=== PATIENT | female | born 1980 | race Caucasian/White ===

== ENCOUNTER 2016-08-20 07:26 | Inpatient (IN) | payer BC ==
[2016-08-20] MEDS ORDERED: Dinoprostone* 10 MG VAG.SUPP VAGINAL ONE (09:27)
[2016-08-20] MEDS ORDERED: Acetaminophen TAB* 325 MG PO PRN (14:56)
[2016-08-20] MEDS ORDERED: Nalbuphine* 20 MG/ML 1 ML VIAL IV PRN (22:52)
[2016-08-20] MEDS ORDERED: Promethazine INJ(RESTRICTED)* 25 MG/ML 1 ML VIAL IV PRN (22:53)
[2016-08-21 00:38] LABS: Hematocrit 35 % (35-47); Hemoglobin 11.5 g/dl (12.0-16.0); Mean Corpuscular HGB Conc 33 g/dl (31-36); Mean Corpuscular Hemoglobin 27 pg (27-31); Mean Corpuscular Volume 83 fL (80-97); Mean Platelet Volume 8 um3 (7.4-10.4); Red Blood Count 4.18 10^6/ul (4.0-5.4); Red Cell Distribution Width 13 % (10.5-15); White Blood Count 18.1 10^3/ul (3.5-10.8)
[2016-08-21] MEDS ORDERED: Oxytocin in LR* 20 UNITS/1,000 ML BAG IVPB ONE (03:59)
[2016-08-21] MEDS ORDERED: Oxytocin in LR* 20 UNITS/1,000 ML BAG IVPB SCH (05:00)
[2016-08-21] MEDS ORDERED: OBEPIDURAL* 250 ML ONE (08:30)
[2016-08-21] MEDS ORDERED: Phenylephrine IV* 40 MCG/ML 10 ML SYRINGE IV PUSH PRN (11:09)
[2016-08-21] MEDS ORDERED: Sodium Citrate/Citric Acid* 15 ML UDC PO PRN (11:09)
[2016-08-21] MEDS ORDERED: EPHEDrine (Pressors)* 50 MG/ML VIAL IV PUSH PRN (11:09)
[2016-08-21] MEDS ORDERED: Famotidine TAB* 20 MG PO PRN (11:09)
[2016-08-21] MEDS ORDERED: Ondansetron INJ* 2 MG/ML VIAL IV PRN (20:09)
[2016-08-21] MEDS ORDERED: Ondansetron INJ* 2 MG/ML VIAL ONE (20:13)
[2016-08-21] MEDS ORDERED: fentaNYL* 50 MCG/ML 2 ML VIAL (100 MCG VIAL) ONE (20:29)
[2016-08-22 00:53] LABS: Hematocrit 32 % (35-47); Hemoglobin 10.5 g/dl (12.0-16.0); Mean Corpuscular HGB Conc 33 g/dl (31-36); Mean Corpuscular Hemoglobin 27 pg (27-31); Mean Corpuscular Volume 82 fL (80-97); Mean Platelet Volume 8 um3 (7.4-10.4); Red Blood Count 3.89 10^6/ul (4.0-5.4); Red Cell Distribution Width 13 % (10.5-15); White Blood Count 22.2 10^3/ul (3.5-10.8)
[2016-08-22 01:48] LABS: Albumin 2.9 g/dL (3.2-5.2); BUN/Creatinine Ratio 9.5 (8-20); Calcium 8.1 mg/dL (8.6-10.3); EGFR African American 76.3 (>60); EGFR Non-African American 59.3 (>60); Globulin 2.1 g/dL (2-4); Potassium 3.9 mmol/L (3.5-5.0); Total Bilirubin 0.6 mg/dL (0.2-1.0)
[2016-08-22] MEDS ORDERED: Furosemide IV* 10 MG/ML 2 ML VIAL (20 MG) IV ONE (02:11)
[2016-08-22] MEDS ORDERED: Furosemide IV* 10 MG/ML VIAL (40 MG) IV ONE (03:00)
[2016-08-22] MEDS ORDERED: Furosemide IV* 10 MG/ML VIAL (40 MG) ONE ×2 (03:22→05:51)
[2016-08-22] MEDS ORDERED: Furosemide IV* 10 MG/ML 10 ML VIAL (100 MG) IV ONE (05:52)
[2016-08-22 08:48] LABS: Hematocrit 35 % (35-47); Hemoglobin 11.4 g/dl (12.0-16.0); Mean Corpuscular HGB Conc 33 g/dl (31-36); Mean Corpuscular Hemoglobin 27 pg (27-31); Mean Corpuscular Volume 83 fL (80-97); Mean Platelet Volume 8 um3 (7.4-10.4); Red Cell Distribution Width 13 % (10.5-15); White Blood Count 21.2 10^3/ul (3.5-10.8)
[2016-08-22 08:54] LABS: Urine Bilirubin Negative (Negative); Urine Glucose 1+(50 mg/dL) (Negative); Urine Nitrite Negative (Negative)
[2016-08-22 08:58] LABS: BUN/Creatinine Ratio 6.3 (8-20); Calcium 8.1 mg/dL (8.6-10.3); EGFR African American 38.2 (>60); EGFR Non-African American 29.7 (>60); Globulin 2.6 g/dL (2-4); Potassium 3.7 mmol/L (3.5-5.0); Total Bilirubin 0.8 mg/dL (0.2-1.0); Total Protein 5.6 g/dL (6.4-8.9); Uric Acid 5.2 mg/dL (2.3-6.6)
[2016-08-22 09:08] LABS: Urine Bacteria Absent (Absent)
[2016-08-22] MEDS ORDERED: ceFOXitin 2 GM IVPREMIX* 2 GM/50 ML BAG ONE (09:17)
[2016-08-22] MEDS ORDERED: ceFOXitin 2 GM IVPREMIX* 2 GM/50 ML BAG IVPB ONE (09:21)
[2016-08-22] MEDS ORDERED: Morphine PF AMP (0.5MG/ML)* 5 MG/10 ML AMP ONE (09:30)
[2016-08-22] MEDS ORDERED: OXYTOCIN* 10 UNITS/ML 1 ML VIAL ONE (10:04)
[2016-08-22] MEDS ORDERED: Ondansetron INJ* 2 MG/ML VIAL ONE (10:04)
[2016-08-22] MEDS ORDERED: Misoprostol TAB* 200 MCG ONE (11:08)
[2016-08-22] MEDS ORDERED: Dibucaine 1% 28.35 GM TUBE PR PRN (11:14)
[2016-08-22] MEDS ORDERED: Acetaminophen TAB* 325 MG PO PRN (11:14)
[2016-08-22] MEDS ORDERED: Glycerin ADULT SUPP PR PRN (11:14)
[2016-08-22] MEDS ORDERED: Naloxone* 0.4 MG/ML 1 ML VIAL IV PRN (11:23)
[2016-08-22] MEDS ORDERED: Nalbuphine* 20 MG/ML 1 ML VIAL IV PRN ×2 (11:23)
[2016-08-22] MEDS ORDERED: HYDROmorphone* 1 MG/ML 1 ML SYR IV PRN (11:23)
[2016-08-22] MEDS ORDERED: diPHENhydraMINE IV* 50 MG/ML 1 ml VIAL (BENADRYL) IV PRN (11:23)
[2016-08-22] MEDS ORDERED: Ibuprofen TAB* 600 MG PO PRN (11:23)
[2016-08-22] MEDS ORDERED: fentaNYL* 50 MCG/ML 2 ML VIAL (100 MCG VIAL) ONE (11:45)
[2016-08-22] MEDS: fentaNYL* 50 MCG/ML 2 ML VIAL (100 MCG VIAL) IV PRN ×4 (11:54→12:22)
[2016-08-22] MEDS ORDERED: Oxytocin in LR* 20 UNITS/1,000 ML BAG IVPB SCH (12:00)
[2016-08-22] MEDS ORDERED: Ketorolac INJ* 30 MG/ML 1 ML VIAL IV PRN (12:04)
[2016-08-22] MEDS: Witch Hazel PAD* JAR TOPICAL PRN (13:11)
[2016-08-22] MEDS: Simethicone CHEW TAB* 80 MG PO SCH ×3 (13:11→19:54)
[2016-08-22] MEDS ORDERED: Ketorolac INJ* 30 MG/ML 1 ML VIAL ONE (13:20)
[2016-08-22 15:09] LABS: Urine Bacteria Absent (Absent); Urine Bilirubin Negative (Negative); Urine Glucose Negative (Negative); Urine Nitrite Negative (Negative)
[2016-08-22] MEDS: OBEPIDURAL* 250 ML EPIDURAL SCH (15:43)
[2016-08-22] MEDS: Docusate CAP* 100 MG PO SCH ×2 (15:44→19:55)
--- NOTE | 2016-08-22 16:10 | CONS ---
CC: Dr. Amezquita * CONSULTATION REPORT: DATE OF CONSULT: 08/22/16 - ROOM #118 PRIMARY CARE PROVIDER: None. REQUESTING PHYSICIAN FOR CONSULT: Dr. Amezquita. REASON FOR MEDICAL CONSULTATION: Evaluation of elevated creatinine and low urine output. HISTORY OF PRESENTING ILLNESS: I refer you to Dr. Amezquita's H and P for further details. In short, Ms. Capone is a 36-year-old female patient that presented on the of this month for induction. She was noted last night to have low urine output and a climbing creatinine this morning. She underwent C- section today, but because of the elevated creatinine and low urine output, we were asked to evaluate in consult. The patient was evaluated post . She has actually had about 1200 mL of urine output after delivering the baby. She denied having any chest pain currently. No shortness of breath. She does admit to having some abdominal discomfort at the incision. She denies having any lightheadedness or feeling dizzy. She says that to her knowledge, her blood pressures have remained normotensive throughout the . She did notice that her lower extremities were edematous, but because of the acute renal failure, her creatinine jumping from 1 to 1.9 in a day, in addition to this the patient having no urine output, we are asked to evaluate in consult. She denies having any flank pain or back pain. REVIEW OF SYSTEMS: There is no documented fever. She denied having any significant weight change. There was no double vision. She denies having any ear discharge. There was no rhinorrhea. No sore throat. No thyroid enlargement. She denied having any chest pain. There was no orthopnea, no nocturnal dyspnea. There is abdominal pain from HPI. There is no nausea, no vomiting, no dysuria, no frequency, no loss of consciousness, no pruritus and no skin ulcerations. Review of 14 systems completed, all others negative. PAST MEDICAL HISTORY: Significant for, 1. She has had a PE after having lower extremity surgery. 2. Anxiety. 3. Depression. 4. She is para 1, 1. PAST SURGICAL HISTORY: 1. She has had a left tib-fib ORIF. 2. done today. 3. Tonsillectomy. FAMILY HISTORY: Reviewed and noncontributory. SOCIAL HISTORY: She does not smoke. She does not drink. Surrogate decision maker is her Chava. ALLERGIES TO MEDICATIONS: Include HYDROCODONE and TRAMADOL. HOME MEDICATIONS: Include multivitamin 1 tablet daily. PHYSICAL EXAM: Vital Signs: Blood pressure 110/54, pulse 68, respirations 18, temperature 97.3. General: At this time, Ms. Capone is a 36-year-old female patient. She appears to be well-developed, well-nourished. She does not appear to be in any acute distress. HEENT: Head: Atraumatic. Eyes: Sclerae is anicteric, not pale. Neck: Supple. Throat: Oral mucosa appears to be moist. No oropharyngeal erythema. Heart: Sounds S1, S2. Regular rate and rhythm. No murmurs, rubs, or gallops. Lungs: Clear to auscultation. No wheezes, rales, or rhonchi. Abdomen was tender particularly at the incision site. Bowel sounds are hypoactive. Extremities: Pulses 2+ throughout. She did have +2 pedal edema. Neurologically, she is awake, alert and oriented x3. Her tongue is midline. Gore Cutter were equal. No gross focal deficits. Her skin is intact. DIAGNOSTIC STUDIES/LAB DATA: Labs today revealed WBC 21.2, RBC of 4.20, hemoglobin 11.5, hematocrit 35, and platelet count of 263. The INR was 0.86. The PTT was 27. Sodium was 124, potassium 3.7, chloride 104, bicarb 21, BUN 12, creatinine 1.91, glucose 91. LFTs were normal with AST 21, ALT 10, alk phos 135. Urine showed 2+ protein, 2+ blood. She had a urine random creatinine 143 , protein of 463. She had 2+ rbc's in her urine as well and 1+ glucose. Old medical records were reviewed. ASSESSMENT AND PLAN: Mrs. Capone is a 36-year-old female patient coming into the OB for induction on the of this month. Last night, it was noted that she was having decreased urine output. In addition to this, she was noted to be going into acute renal failure. She is status post . We are asked to evaluate in consult. Recommendations at this point are: 1. Status post section. I will defer the management of this to Dr. Amezquita's team. 2. Acute renal failure. At this point, I question if she did have some preeclampsia, although her blood pressures were not consistent with this; however, it seems that after delivering the baby, she is diuresing well. She is put out 1200 mL. My plan at this point is to repeat a BMP in the morning, follow her urine output, hydrate her which has been ordered by Dr. Amezquita and monitor her. I am going to check a urine sodium and repeat her urine random creatinine and do another urinalysis and we will go ahead and continue to follow , and we will monitor her creatinine tomorrow as well. Should they continue to elevate, maybe consider getting a help from Dr. Harkins, but at this point she does appear to be stable. She is making urine. We will monitor. 3. History of anxiety and depression. Continue supportive care. 4. History of pulmonary embolism. This was noted after having a fracture and surgery. We will need to monitor for this. She is not having any symptoms or signs of this, but we will monitor. 5. DVT prophylaxis. I will defer to the primary team 6. Fluids and nutrition. She can have a regular diet. 7. Code status. Full code. TIME SPENT: Time spent on the consult was 60 minutes, greater than half the time was spent [id number] with the patient obtaining my history and physical, the other half the time was spent going over the plan of care with the patient and implementing the plan of care. I did discuss the plan of care with my attending, Dr. aCrd, who is in agreement. ALONSO HAM, SHAHID [id number]/[facility] #: [id number] ESEQUIEL
[2016-08-22] MEDS: Ibuprofen TAB* 600 MG PO PRN (19:45)
[2016-08-22] MEDS: Enoxaparin(*) 40 MG/0.4 ML SYR SUBCUT SCH (19:48)
[2016-08-22] MEDS: oxyCODONE/Acetamin 5/325 MG* TAB PO PRN (22:26)
[2016-08-23] MEDS: Ibuprofen TAB* 600 MG PO PRN ×4 (01:56→20:44)
[2016-08-23] MEDS: oxyCODONE/Acetamin 5/325 MG* TAB PO PRN ×4 (04:14→23:03)
[2016-08-23 06:40] LABS: Add Diff/Slide Review? Slide Review Added; Comments Flag Yes; Hematocrit 26 % (35-47); Hemoglobin 8.5 g/dl (12.0-16.0); Mean Corpuscular HGB Conc 33 g/dl (31-36); Mean Corpuscular Hemoglobin 27 pg (27-31); Mean Corpuscular Volume 83 fL (80-97); Mean Platelet Volume 8 um3 (7.4-10.4); Red Blood Count 3.18 10^6/ul (4.0-5.4); Red Cell Distribution Width 13 % (10.5-15); White Blood Count 16.8 10^3/ul (3.5-10.8)
[2016-08-23 06:53] LABS: BUN/Creatinine Ratio 13.2 (8-20); Calcium 7.8 mg/dL (8.6-10.3); EGFR African American 110.7 (>60); EGFR Non-African American 86.1 (>60); Potassium 3.3 mmol/L (3.5-5.0)
[2016-08-23] MEDS: Docusate CAP* 100 MG PO SCH ×3 (08:01→20:44)
[2016-08-23] MEDS: Simethicone CHEW TAB* 80 MG PO SCH ×4 (08:02→20:44)
[2016-08-23] MEDS: Ferrous Gluconate TAB* 324 MG TAB PO SCH ×2 (12:28→20:44)
--- NOTE | 2016-08-23 14:49 | OP ---
DATE OF OPERATION: 08/22/16 - ROOM #[id number]-118 DATE OF : 80 SURGEON: Daniella Amezquita MD WELDER SETTER ELECTRON BEAM MACHINE: Dr. Karsten Groves. SECOND WELDER SETTER ELECTRON BEAM MACHINE: Renato Roth MS-III ANESTHESIOLOGIST: Portia Lazo MD ANESTHESIA: Spinal PRE-OP DIAGNOSES: Intrauterine at 41-3/7th weeks, oliguria, arrest of descent and prolonged rupture of membranes. POST-OP DIAGNOSES: Intrauterine at 41-3/7th weeks, oliguria, arrest of descent and prolonged rupture of membranes, delivered. OPERATIVE PROCEDURE: Primary low-transverse section. ESTIMATED BLOOD LOSS: 1000 cc. URINE OUTPUT: 600 cc intraoperatively of concentrated dark urine. FLUIDS: 1500 cc of crystalloid. FINDINGS: Revealed a vertex female with Apgars 8 at 1 minute and 9 at 5 minutes, weight was 9 pounds 3 ounces. Meconium stained vernix. Thin meconium in the amniotic fluid. Nuchal cord x1. Normal appearing placenta, 3-vessel cord manually extracted intact. Normal appearing tubes and ovaries bilaterally. COMPLICATIONS: None apparent. DISPOSITION: Stable to recovery room. DESCRIPTION OF PROCEDURE: Patient was placed in dorsal lithotomy position. The abdomen was prepped and draped in a sterile standard fashion. The patient was identified with universal protocol for correct procedure, patient and position. After testing anesthesia to appropriate level, incision was made 2 fingerbreadths above the pubic symphysis with the scalpel. This was carried down through the fascia. Fascia was scored in the midline, extended laterally and superiorly using curved Duncan scissors. The fascia was superiorly and inferiorly with blunt and sharp dissection. The peritoneum was then entered bluntly. The peritoneal incision was extended laterally and superiorly while directly visualizing bowel and bladder using Metzenbaum scissors. The bladder blade was inserted and lower uterine segment was identified. Incision was made with scalpel. This was carried down through membrane. The incision was extended bluntly, laterally and superiorly. The was found to be wedged VIRIDIANA. The head was delivered. Nuchal cord was reduced. Anterior, then posterior shoulder were delivered. Cord was milked and then clamped and then cut and baby was handed off to awaiting medicare nurse. Appropriate cord blood was obtained. Placenta was then manually extracted and noted to be intact with 3-vessel cord. The uterus was exteriorized, noted to be very boggy and atonic. The uterine cavity was explored and noted to be free of any membranes. The uterine incision itself was clamped with broad Allis and uterine incision itself, first layer with running locked 0 Vicryl x2 and a second layer with running Vicryl 0 imbricated x1. The uterus became tonic with intrarectal Cytotec 800 mcg. The uterus was then returned intra- abdominally. Colic gutters were lavaged. Hemostasis was assured at hysterotomy site. The peritoneum was then reapproximated using 3-0 Vicryl in a running fashion. Subfascial area was visualized, noted to be hemostatic. The fascia itself was reapproximated using 0 Vicryl x2 in a running fashion. The subcu was lavaged. Hemostasis assured with Bovie coagulation, subcuticular fat stitch was placed using 3-0 Vicryl in an interrupted fashion. The skin was then reapproximated using a 4-0 Monocryl in a subcuticular fashion. Mastisol and Steri's were applied. All sponge, needles, instruments, blade counts were correct throughout the case. The patient tolerated the procedure well and went to recovery room in stable condition. [id number]/[facility] #: [id number] ESEQUIEL
[2016-08-23] MEDS: Enoxaparin(*) 40 MG/0.4 ML SYR SUBCUT SCH (19:40)
[2016-08-24] MEDS: Ibuprofen TAB* 600 MG PO PRN ×4 (02:42→21:40)
[2016-08-24] MEDS: oxyCODONE/Acetamin 5/325 MG* TAB PO PRN ×5 (06:36→22:36)
[2016-08-24] MEDS: Docusate CAP* 100 MG PO SCH ×3 (09:32→21:42)
[2016-08-24] MEDS: Simethicone CHEW TAB* 80 MG PO SCH ×4 (09:32→21:42)
[2016-08-24] MEDS: Ferrous Gluconate TAB* 324 MG TAB PO SCH ×2 (09:32→21:42)
[2016-08-24] MEDS: Enoxaparin(*) 40 MG/0.4 ML SYR SUBCUT SCH (19:40)
[2016-08-25] MEDS: Witch Hazel PAD* JAR TOPICAL PRN (01:15)
[2016-08-25] MEDS: oxyCODONE/Acetamin 5/325 MG* TAB PO PRN ×2 (02:32→06:49)
[2016-08-25] MEDS: Ibuprofen TAB* 600 MG PO PRN ×2 (03:49→09:43)
[2016-08-25 08:32] VITALS: BP 103/60
[2016-08-25] MEDS: Simethicone CHEW TAB* 80 MG PO SCH (08:56)
[2016-08-25] MEDS: Docusate CAP* 100 MG PO SCH (08:56)
[2016-08-25] MEDS: Ferrous Gluconate TAB* 324 MG TAB PO SCH (09:43)
== END 2016-08-25 13:29 | disposition home or self-care (01) | DRG 540 ==
LOC: MCHOBOUT 07:26 → MCHOB 09:30
PROVIDERS: ADMIT Obstetrics & Gynecology; ATTEND Obstetrics & Gynecology
PROC: 10907ZC Drainage of Amniotic Fluid, Therapeutic from Products of Conception, Via Natural or Artificial Opening (ICD-10-PCS; 2016-08-22)
PROC: 3E033VJ Introduction of Other Hormone into Peripheral Vein, Percutaneous Approach (ICD-10-PCS; 2016-08-22)
PROC: 10D00Z1 Extraction of Products of Conception, Low, Open Approach (ICD-10-PCS; principal; 2016-08-22 09:37)
DX: O48.0 Post-term pregnancy (principal); F32.9 Major depressive disorder, single episode, unspecified; O32.4XX0 Maternal care for high head at term, not applicable or unspecified; O42.02 Full-term premature rupture of membranes, onset of labor within 24 hours of rupture; O99.344 Other mental disorders complicating childbirth; O77.0 Labor and delivery complicated by meconium in amniotic fluid; O42.12 Full-term premature rupture of membranes, onset of labor more than 24 hours following rupture; O14.14 Severe pre-eclampsia complicating childbirth; O90.81 Anemia of the puerperium; D64.9 Anemia, unspecified; Z3A.41 41 weeks gestation of pregnancy; Z37.0 Single live birth; F41.9 Anxiety disorder, unspecified
CPT/HCPCS: 36415; 80048; 80053; 81003; 81015; 82570; 84156; 84300; 84550; 85025; 85610; 85730; 86850; 86900; 86901; 87086; 88307; A9270-GY; J0694; J1650; J1885; J1940; J2300; J2405; J2550; J2590; J3010

== ENCOUNTER 2023-08-12 19:11 | Inpatient (IN) ==
[2023-08-12 19:37] LABS: Hematocrit 37.1 % (35-45); Mean Corpuscular Hemoglobin 23.7 pg (27-33); Mean Corpuscular Hgb Conc 32.3 g/dL (31-36); Mean Corpuscular Volume 73.3 fL (80-97); Mean Platelet Volume 7.2 fL (7.5-11.2); Platelet Count 343 10^3/uL (150-450); Red Blood Count 5.05 10^6/uL (3.63-4.92); White Blood Count 9.9 10^3/uL (3.8-11.8)
[2023-08-12] MEDS ORDERED: VERAPAMIL 2.5 MG/ML 2 ML VIAL ** 5 mg/2 ml ONE (19:37)
[2023-08-12] MEDS ORDERED: Heparin 1,000 UNIT/ML 10 ml (10,000 UNITS) CATHLAB/DIALYSIS ONE (19:37)
[2023-08-12] MEDS ORDERED: Heparin 2 UNITS/ML 1000 mls 2,000 ML IV ONE (19:37)
[2023-08-12] MEDS ORDERED: Midazolam 5 mg/5 ml VIAL 1 mg/ml 5 ml VIAL (5 mg) ONE (19:37)
[2023-08-12] MEDS ORDERED: Lidocaine 1% MPF 5 ML VIAL ONE (19:37)
[2023-08-12] MEDS ORDERED: fentaNYL 250 mcg/5 ml 50 MCG/ML 5 ml VIAL (250 MCG) ONE (19:37)
[2023-08-12] MEDS: Heparin - STEMI 5,000 UNITS/ML 1 ml VIAL IV ONE (19:43)
[2023-08-12] MEDS ORDERED: Iohexol 350 (CONTRAST) 200 ML MDV IV ONE (19:45)
[2023-08-12] MEDS ORDERED: nitroGLYCERIN DRIP 25,000 MCG/250 ML BTL ONE (19:45)
[2023-08-12 20:02] LABS: ABS Basophils 0.1 10^3/uL (0.0-0.1); ABS Eosinophils 0.2 10^3/uL (0.0-0.5); ABS Lymphocytes 3.5 10^3/uL (1.0-4.8); ABS Monocytes 0.7 10^3/uL (0.0-0.9); ABS Neutrophils 5.4 10^3/uL (1.5-7.6); Anisocytosis 1+; Eosinophil % 2.1 %; Lymphocyte % 35.2 %; Microcytosis 2+
[2023-08-12 20:24] LABS: Albumin 4.4 g/dL (3.2-5.2); Albumin/Globulin Ratio 1.9 (1-3); Calcium 8.9 mg/dL (8.6-10.3); Creatinine, Serum 1.01 mg/dL (0.51-0.95); Globulin 2.3 g/dL (2-4); Magnesium 1.9 mg/dL (1.9-2.7); Phosphorus 1.9 mg/dL (2.5-5.0); Potassium 3.4 mmol/L (3.5-5.0); Total Bilirubin 0.4 mg/dL (0.2-1.0); Total Protein 6.7 g/dL (6.4-8.9); eGFR CKD-EPI 70.8 (>60)
[2023-08-12 21:27] LABS: Activated Partial Thrombo Time 27.5 seconds (26.0-38.0)
[2023-08-12] MEDS: NS 0.9% 1000 ml BAG 1,000 ML IV SCH (21:58)
[2023-08-12 22:25] LABS: Urine Appearance Clear; Urine Bilirubin Negative (Negative); Urine Blood Negative (Negative); Urine Color Colorless; Urine Glucose Negative (Negative); Urine Ketones Trace (Negative); Urine Nitrite Negative (Negative); Urine Protein Negative (Negative); Urine Specific Gravity 1.031 (1.002-1.030); Urine Urobilinogen Negative (Negative)
[2023-08-12 22:53] LABS: High Sensitivity Troponin 1 Hr > 24000 pg/mL (<15)
[2023-08-12] MEDS: Magnesium Sulfate 2 gm BAG 2 GM/50 ML BAG IVPB ONE (23:35)
[2023-08-12] MEDS: Potassium Chlor 20 meq TAB.ER PO ONE (23:38)
[2023-08-13] MEDS: Magnesium Sulfate 2 gm BAG 2 GM/50 ML BAG ONE (01:21)
[2023-08-13 04:56] LABS: ABS Basophils 0.1 10^3/uL (0.0-0.1); ABS Eosinophils 0.1 10^3/uL (0.0-0.5); ABS Lymphocytes 2.9 10^3/uL (1.0-4.8); ABS Monocytes 0.9 10^3/uL (0.0-0.9); ABS Neutrophils 7.4 10^3/uL (1.5-7.6); ABS Nucleated RBC 0.01 10^3/ul; Eosinophil % 0.8 %; Hematocrit 37.1 % (35-45); Hemoglobin 12.1 g/dL (11.5-14.3); Lymphocyte % 25.4 %; Mean Corpuscular Hemoglobin 24.1 pg (27-33); Mean Corpuscular Hgb Conc 32.7 g/dL (31-36); Mean Corpuscular Volume 73.7 fL (80-97); Mean Platelet Volume 7.4 fL (7.5-11.2); Nucleated Red Blood Cells % 0.1 %/100WBC (0.0-0.8); Platelet Count 367 10^3/uL (150-450); Red Blood Count 5.04 10^6/uL (3.63-4.92); Red Cell Distribution Width 14.9 % (12-17); White Blood Count 11.3 10^3/uL (3.8-11.8)
[2023-08-13 05:14] LABS: Albumin 4.3 g/dL (3.2-5.2); Albumin/Globulin Ratio 1.8 (1-3); Calcium 8.9 mg/dL (8.6-10.3); Creatinine, Serum 0.81 mg/dL (0.51-0.95); Globulin 2.4 g/dL (2-4); HDL Cholesterol 62.7 mg/dL; Potassium 4.5 mmol/L (3.5-5.0); Total Bilirubin 0.5 mg/dL (0.2-1.0); Total Protein 6.7 g/dL (6.4-8.9); eGFR CKD-EPI 92.3 (>60)
[2023-08-13] MEDS: Iodixanol (CONTRAST) 320 MG/ML 100 ML SDV IV ONE (06:38)
[2023-08-13] MEDS: Sulfur Hexaflouride MICROSPHR 25 MG VIAL IV ONE (07:31)
[2023-08-13 07:59] LABS: Magnesium 2.6 mg/dL (1.9-2.7); Phosphorus 3.8 mg/dL (2.5-5.0)
[2023-08-13 10:55] LABS: CRP High Sensitivity 1.56 mg/L (<2.00); Rheumatoid Factor < 10 IU/mL (<15)
[2023-08-13 11:08] LABS: T4, Total 7.51 mcg/dL (6.09-12.23)
[2023-08-13 11:10] LABS: TSH Ultra Thyroid Stim Horm < 0.01 mcIU/mL (0.34-5.60)
[2023-08-13 11:17] LABS: Total T3 151 ng/dL (87-178)
[2023-08-13] MEDS: Iohexol 350 (CONTRAST) 500 ML MDV IV ONE (13:37)
[2023-08-13] MEDS: Enoxaparin 40 MG/0.4 ML SYR SUBCUT SCH (15:33)
[2023-08-13] MEDS ORDERED: Lorazepam PYXIS KEY PRN (21:09)
[2023-08-13] MEDS: LORazepam 2 mg VIAL 1 ml IV PUSH PRN (21:18)
[2023-08-13] MEDS: Gadobenate (CONTRAST) 529 MG/ML 10 ML SDV IV ONE (22:16)
[2023-08-14 04:58] LABS: Hematocrit 36.5 % (35-45); Hemoglobin 11.6 g/dL (11.5-14.3); Mean Corpuscular Hemoglobin 23.8 pg (27-33); Mean Corpuscular Hgb Conc 31.8 g/dL (31-36); Mean Corpuscular Volume 74.9 fL (80-97); Mean Platelet Volume 7.2 fL (7.5-11.2); Platelet Count 301 10^3/uL (150-450); Red Blood Count 4.87 10^6/uL (3.63-4.92); Red Cell Distribution Width 15.3 % (12-17); White Blood Count 8.7 10^3/uL (3.8-11.8)
[2023-08-14 05:41] LABS: Anion Gap 9 mmol/L (2-16); Blood Urea Nitrogen 10 mg/dL (6-24); CO2 Carbon Dioxide 20 mmol/L (22-32); Calcium 8.5 mg/dL (8.6-10.3); Chloride 109 mmol/L (101-111); Glucose 92 mg/dL (70-100); Sodium 138 mmol/L (135-145)
[2023-08-14 05:47] LABS: HCG Pregnancy < 0.60 mIU/mL
[2023-08-15 10:45] VITALS: BP 101/71
== END 2023-08-15 10:36 | disposition home or self-care (01) | DRG 190 ==
LOC: ED 19:11 → MEDTELE 19:50 → CHICATH 19:51 → ICU 20:55 → MEDTELE 08-14 09:55
PROVIDERS: ATTEND Internal Medicine